=== PATIENT | female | born 1945 | race Caucasian/White ===

== ENCOUNTER 2019-11-05 05:49 | Emergency (ER) | payer MEDICARE, BC ==
[~2019-11-05] VITALS: Ht 167.6 cm; Wt 78.9 kg
[~2019-11-05 05:49] MED LIST: DIAZ5TAB PO; HYDR473S47 PO; IRON PO; LEVO137T2 PO
--- NOTE | 2019-11-05 05:52 | NUR ---
PT REPORTING NECK PAIN, PLACED IN C-COLLAR IN TRIAGE. WOUND DRESSED
[2019-11-05] MEDS ORDERED: DIPH,PERTUSS(ACELL),TET VAC/PF 0.5 ML IM-VACC ONE ×2 (06:00→08:19)
[2019-11-05] MEDS ORDERED: LIDOCAINE-MPF 1%, 5ML INFIL ONE (06:00)
--- NOTE | 2019-11-05 07:21 | NUR ---
LANDSCAPING SUPERVISOR: CALLED PT FROM LOBBY, NO ANSWER
--- NOTE | 2019-11-05 07:32 | NUR ---
ANESTHESIA ASSISTANT: CALLED PT FROM LOBBY, NO ANSWER
--- NOTE | 2019-11-05 07:45 | NUR ---
PAPER CARRIER: CALLED PATIENT NO ANSWER
--- NOTE | 2019-11-05 08:08 | NUR ---
LITHOGRAPH PRINTER: PT TO ROOM FROM LOBBY
[2019-11-05] MEDS ORDERED: LIDOCAINE-MPF 1%, 5ML ONE (08:19)
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
--- NOTE | 2019-11-05 09:01 | NUR ---
Pt ambulates with steady gait and balance from room to imaging. NATHALIE.
[2019-11-05 09:44] VITALS: BP 125/85
--- NOTE | 2019-11-05 09:44 | NUR ---
Pt pending provider admin of medication per EMAR and irrigation of wound prior to wound dressing.
[2019-11-05] MEDS ORDERED: NEOSPORIN OINT. PKT 1 PACKET ONE (09:50)
[2019-11-05] MEDS ORDERED: BACITRACIN OINT 500U/GM, 15 GM TP SCH (10:30)
--- NOTE | 2019-11-05 10:40 | NUR ---
c collar not applied due to radiology results
--- NOTE | 2019-11-05 10:50 | NUR ---
Pt pending DC paperwork.
--- NOTE | 2019-11-05 11:18 | NUR ---
Patient given discharge instructions and they have confirmed that they understand the instructions. Patient ambulatory with steady gait. Pt left with d/c paperwork, Rx, and all personal belongings.
== END 2019-11-05 07:51 | disposition home or self-care (01) ==
LOC: ED 07:45
DX: S51.811A Laceration without foreign body of right forearm, initial encounter (principal); S40.012A Contusion of left shoulder, initial encounter; S50.02XA Contusion of left elbow, initial encounter; S70.02XA Contusion of left hip, initial encounter; S80.02XA Contusion of left knee, initial encounter; S33.5XXA Sprain of ligaments of lumbar spine, initial encounter; E03.9 Hypothyroidism, unspecified; W01.0XXA Fall on same level from slipping, tripping and stumbling without subsequent striking against object, initial encounter; Y93.89 Activity, other specified; Y92.098 Other place in other non-institutional residence as the place of occurrence of the external cause; Y99.8 Other external cause status
CPT/HCPCS: 12032; 72020; 72050; 72110; 72131; 90471; 90715; 99284